=== PATIENT | female | born 1995 | race Two or more races ===

== ENCOUNTER 2024-10-21 07:15 | Day surgery (SDC) | payer BC ==
[2024-10-20 10:58] LABS: Absolute Basophils 0.1 K/uL (0-0.5); Absolute Eosinophils 0.1 K/uL (0-0.5); Absolute Monocytes 0.5 K/uL (0.1-1.3); Eosinophils % 1.8 % (0-4.4); Hematocrit 36.4 % (36.0-45.0); Lymphocytes % 30.7 % (15.3-44.8); MCH 25.9 pg (27.0-35.0); MCHC 32.9 g/dL (32.0-36.0); MCV 78.8 fL (80-100); MPV 7.8 fL (7.6-11.3); Neutrophils % 59.5 % (41.7-73.7); Nucleated Red Blood Cells % 0.1 % (0-0); Platelets 396 thou/uL (152-406); RBC Red Blood Cell Count 4.62 M/uL (3.86-4.86); Red Cell Distribution Width 15.5 % (12.1-15.2)
[2024-10-20 11:10] LABS: Anion Gap 6.9 mEq/L (5.0-15.0); Potassium 3.9 mEq/L (3.5-5.1)
[2024-10-21] MEDS ORDERED: FENTANYL CITR 100 MCG/2 ML ONE (07:32)
[2024-10-21] MEDS ORDERED: propofoL 200 MG/20 ML VIAL IV ONE (07:32)
[2024-10-21] MEDS ORDERED: MIDAZOLAM HCL 2 MG/2 ML INJ ONE (07:32)
[2024-10-21] MEDS ORDERED: ONDANSETRON 4 MG/2 ML VIAL ONE (07:32)
[2024-10-21] MEDS ORDERED: LIDOCAINE 2% MPF 5 ML VIAL ONE (07:32)
[2024-10-21] MEDS: Ringers Lactate 1,000 ML IV ONE (07:50)
[2024-10-21] MEDS: SCOPOLAMINE HYDROBROMIDE PATCH TD ONE (08:38)
[2024-10-21] MEDS: CEFAZOLIN SODIUM 1 GM/VIAL ONE (08:44)
[2024-10-21] MEDS: FAMOTIDINE 20 MG/2 ML VIAL IV ONE (08:51)
[2024-10-21] MEDS ORDERED: dexAMETHasone 10 MG/ML VIAL ONE (09:17)
[2024-10-21] MEDS ORDERED: KETOROLAC 30 MG/ML INJ ONE (09:21)
[2024-10-21] MEDS ORDERED: EPHEDRINE SULF 50 MG/ML VIAL ONE (09:31)
--- NOTE | 2024-10-21 10:06 | P.BOP ---
Preoperative diagnosis: tender subQ masses left anterior thigh left lower back, R loweer back Postoperative diagnosis: same Primary procedure: Excisional biopsy of tender subQ mass: 1. left anterior thigh 3x3cm Secondary procedure: 2. left lower back 3x2 cm, 3. Right lower back 2x2cm Other procedure(s): ( hip wass not done per pt request since it could not be reproduced) Estimated blood loss: <10cc Specimen: mass x 3. Pt couldnt find today the left hip mass so it was postponed unti Findings: mass x 3 Anesthesia: General Complications: None Transferred to: Recovery Room Condition: Good
[2024-10-21] MEDS: ONDANSETRON 4 MG/2 ML VIAL ONE (10:30)
[2024-10-21] MEDS: PROMETHAZINE INJ 25 MG/ML AMP ONE (10:50)
[2024-10-21] MEDS: METOCLOPRAMIDE 10 MG/2mL INJ ONE (11:06)
[2024-10-21 11:12] VITALS: TEMP 97.5
[2024-10-21 13:34] VITALS: BP 107/50; O2SAT 100
== END 2024-10-21 12:31 | disposition home or self-care (01) ==
LOC: OR 07:15
PROVIDERS: ATTEND Surgery
PROC: 0JB70ZZ Excision of Back Subcutaneous Tissue and Fascia, Open Approach (ICD-10-PCS; principal; 2024-10-21 09:00)
PROC: 0JBM0ZZ Excision of Left Upper Leg Subcutaneous Tissue and Fascia, Open Approach (ICD-10-PCS; 2024-10-21 09:00)
DX: D17.24 Benign lipomatous neoplasm of skin and subcutaneous tissue of left leg (principal); D17.1 Benign lipomatous neoplasm of skin and subcutaneous tissue of trunk
CPT/HCPCS: 85025; 80048; 36415; 84703; 88305; 11403 ×2; 11402; J2550; J2704; J2765; J2003; J2250; J3010; J1100; J2405 ×2; J7120; J0690; 88304